=== PATIENT | female | born 1985 | race Caucasian/White ===

== ENCOUNTER → 2020-06-11 01:45 | Observation (INO) ==
[2020-06-11 00:12] LABS: Bilirubin,Urine Negative (Negative); Blood,Urine Negative (Negative); Clarity,Urine Clear (Clear); Color,Urine Light-Yellow (Yellow); Glucose,Urine (UA) Normal (Normal); Ketones,Urine Negative (Negative); Leukocyte Esterase,Urine Moderate (Negative); Mucus,Urine Few per lpf (None-Few); Nitrite,Urine Negative (Negative); PH,Urine 6.5 pH Units (5.0-8.0); Protein,Urine Negative (Neg-Trace); RBC,Urine 0-3 per hpf (0-3); Specific Gravity,Urine 1.008 (1.010-1.025); Squamous Epithelial Cell,Urine Few per hpf (None-Few); Urobilinogen,Urine Normal (Normal); WBC,Urine 0-3 per hpf (0-3)
[~2020-06-11 01:45] MED LIST: CeFAZolin 2,000 MG/50 ML BAG IVPB ONE; Ringers Solution, Lactated 1,000 ML IVC SCH
== END | disposition home or self-care (01) ==
LOC: 1NENULAB
PROVIDERS: ADMIT Obstetrics & Gynecology; ATTEND Obstetrics & Gynecology

== ENCOUNTER 2020-07-19 05:39 | Inpatient (IN) ==
[2020-07-19] MEDS ORDERED: CeFAZolin 2,000 MG/50 ML BAG IVPB ONE (05:41)
[2020-07-19] MEDS ORDERED: Famotidine 20 MG/2 ML VIAL IVP ONE (05:41)
[2020-07-19] MEDS ORDERED: Metoclopramide 10 MG/2 ML VIAL IVP ONE (05:41)
[2020-07-19] MEDS ORDERED: Ringers Solution, Lactated 1,000 ML IVC ONE (05:41)
[2020-07-19 06:24] LABS: Basophils % 0.4 %; Eosinophils # 0.1 K/mcL (0.0-0.6); Eosinophils % 1.3 %; Hematocrit 34.7 % (35.3-44.9); Hemoglobin 11.7 g/dL (11.5-15.4); Immature Granulocytes % 0.4 % (0-4); Lymphocytes # 1.6 K/mcL (0.6-4.6); Mean Corpuscular HGB Conc 33.7 g/dL (31.6-35.5); Mean Corpuscular Hemoglobin 31.3 pg (28.0-33.3); Mean Corpuscular Volume 92.8 fL (83.0-100.0); Monocytes # 0.5 K/mcL (0.0-1.3); Monocytes % 5.2 %; Neutrophils # 7.7 K/mcL (1.6-8.9); Platelet Count 252 K/mcL (140-400); Red Blood Count 3.74 M/mcL (3.82-4.97); Red Cell Distribution Width 13.8 % (11.5-14.5); Segmented Neutrophils % 76.7 %; White Blood Count 10.1 K/mcL (4.3-11.1)
[2020-07-19 07:00] LABS: Amphetamine Screen,Urine Negative ng/mL (Cutoff=1000); Barbiturate Screen,Urine Negative ng/mL (Cutoff=200)
[2020-07-19 07:01] LABS: Benzodiazepines Screen,Urine Negative ng/mL (Cutoff=300); Cannabinoid Screen,Urine Negative ng/mL (Cutoff = 50); Cocaine Screen,Urine Negative ng/mL (Cutoff= 300); Opiate Screen,Urine Negative ng/mL (Cutoff=300); Phencyclidine Screen,Urine Negative ng/mL (Cutoff=25)
[2020-07-19] MEDS ORDERED: Ringers Solution, Lactated 1,000 ML ONE (07:32)
[2020-07-19] MEDS ORDERED: *HR* Morphine Sulfate/PF 10 MG/10 ML AMPUL ONE (07:48)
[2020-07-19] MEDS ORDERED: *HR* FentaNYL (PF) 100 MCG/2 ML VIAL ONE (07:48)
[2020-07-19] MEDS ORDERED: Ondansetron 4 MG/2 ML VIAL ONE (07:56)
[2020-07-19] MEDS ORDERED: EPHEDrine 50 MG/ML VIAL ONE (08:29)
[2020-07-19] MEDS ORDERED: *HR* OxyCODONE Immed Rel 5 MG TABLET PO PRN (10:46)
[2020-07-19] MEDS ORDERED: Ketorolac 30 MG/ML VIAL IVP PRN (10:46)
[2020-07-19] MEDS ORDERED: *HR* HYDROmorphone (PF) 1 MG/ML SYRINGE IVP PRN (10:46)
[2020-07-19] MEDS ORDERED: Ondansetron 4 MG/2 ML VIAL IVP PRN (11:58)
[2020-07-19] MEDS ORDERED: Simethicone 80 MG TAB.CHEW PO PRN (11:58)
[2020-07-19] MEDS ORDERED: Sennosides 8.6 MG TABLET PO PRN (11:58)
[2020-07-19] MEDS ORDERED: Oxytocin 20 units/ LR 1000 mL 20 UNIT/1,000 ML BAG IVC SCH (11:58)
[2020-07-19] MEDS ORDERED: Metoclopramide 10 MG/2 ML VIAL IVP PRN (11:58)
[2020-07-19] MEDS: *HR* OxyCODONE/APAP 5/325 TABLET PO PRN ×3 (12:36→21:47)
[2020-07-19] MEDS: metroNIDAZOLE 500 MG TABLET PO SCH ×2 (15:30→21:46)
[2020-07-19] MEDS: ceFAZolin 1,000 MG in Water for inj. (sterile) 10 ML IVP SCH ×2 (15:30→23:30)
[2020-07-19] MEDS: Ibuprofen 600 MG TABLET PO PRN (21:46)
[2020-07-20] MEDS: *HR* OxyCODONE/APAP 5/325 TABLET PO PRN ×5 (04:16→20:55)
[2020-07-20] MEDS: Ibuprofen 600 MG TABLET PO PRN ×3 (04:16→15:33)
[2020-07-20 06:35] LABS: Basophils % 0.1 %; Eosinophils % 0.1 %; Hematocrit 29.8 % (35.3-44.9); Immature Granulocytes % 0.3 % (0-4); Lymphocytes # 1.5 K/mcL (0.6-4.6); Lymphocytes % 10.8 %; Mean Corpuscular HGB Conc 33.2 g/dL (31.6-35.5); Mean Corpuscular Hemoglobin 31.7 pg (28.0-33.3); Mean Corpuscular Volume 95.5 fL (83.0-100.0); Mean Platelet Volume 9.8 fL (9.4-12.4); Monocytes # 0.8 K/mcL (0.0-1.3); Monocytes % 5.6 %; Neutrophils # 11.6 K/mcL (1.6-8.9); Platelet Count 222 K/mcL (140-400); Red Blood Count 3.12 M/mcL (3.82-4.97); Red Cell Distribution Width 13.5 % (11.5-14.5); Segmented Neutrophils % 83.1 %
[2020-07-20 06:36] LABS: Hemoglobin 9.9 g/dL (11.5-15.4)
[2020-07-20] MEDS: Prenatal Vit/FA 1 EACH TABLET PO SCH (07:53)
[2020-07-20] MEDS: metroNIDAZOLE 500 MG TABLET PO SCH ×3 (07:53→20:55)
[2020-07-20] MEDS: ceFAZolin 1,000 MG in Water for inj. (sterile) 10 ML IVP SCH (07:54)
[2020-07-21] MEDS: Ibuprofen 600 MG TABLET PO PRN ×2 (01:52→08:11)
[2020-07-21] MEDS: *HR* OxyCODONE/APAP 5/325 TABLET PO PRN ×2 (01:59→06:57)
[2020-07-21 07:57] VITALS: BP 128/77
[2020-07-21] MEDS: Prenatal Vit/FA 1 EACH TABLET PO SCH (08:10)
[2020-07-21] MEDS: metroNIDAZOLE 500 MG TABLET PO SCH (08:10)
== END 2020-07-21 11:24 | disposition home or self-care (01) | DRG 785 ==
LOC: 1NENULAB 05:39 → 1NENUOBS 11:53
PROVIDERS: ADMIT Obstetrics & Gynecology; ATTEND Obstetrics & Gynecology